=== PATIENT | female | born 1985 | race Caucasian/White ===

== ENCOUNTER 2025-06-28 03:59 | Inpatient (IN) | payer SELFPAY ==
[~2025-06-28] VITALS: Ht 160 cm; Wt 68.9 kg
[2025-06-28 04:01] VITALS: O2SAT 98
[2025-06-28 04:37] LABS: BASOPHILS % 0.3 % (0.0-2.0); EOSINOPHILS % 0.1 % (0.0-5.0); HEMATOCRIT. 38.8 % (36.0-48.0); HEMOGLOBIN. 12.8 g/dL (12.0-16.0); LYMPHOCYTES % 17.8 % (20.0-50.0); MEAN PLATELET VOLUME 10.4 fl (7.4-10.4); MONOCYTES % 5.2 % (2.0-8.0); NEUTROPHILS % 76.6 % (40.0-76.0); PLATELET 207 x1000/uL (130-400); RED BLOOD CELL COUNT 4.26 mill/uL (4.2-5.4); RED CELL DISTRIBUTION WIDTH 13.5 % (11.6-14.6)
[2025-06-28 04:55] LABS: CREATININE 0.8 mg/dL (0.6-1.0); TROPONIN I HIGH SENSITIVITY < 4 ng/L (3.0-34); UREA NITROGEN BLOOD 10 mg/dL (9-23)
[2025-06-28 05:11] LABS: HCG SCREEN NEGATIVE
[2025-06-28 08:00] VITALS: BP 125/76; PULSE 89; RESP 20; TEMP 36.9; O2SAT 98
[2025-06-28 09:02] VITALS: BP 125/76; PULSE 89; RESP 20; TEMP 36.9; O2SAT 98
[2025-06-28] MEDS ORDERED: DOCUSATE SODIUM 100MG CAPSULE PO PRN (09:15)
[2025-06-28] MEDS ORDERED: ONDANSETRON HCL 4MG/2ML INJ IV PRN (09:15)
[2025-06-28] MEDS ORDERED: ACETAMINOPHEN 325MG TABLET PO PRN ×2 (09:15)
[2025-06-28] MEDS ORDERED: CLONIDINE 0.1MG TABLET PO PRN (09:15)
[2025-06-28] MEDS ORDERED: IPRATROPIUM/ALBUTEROL 0.5-3(2.5)MG/3ML NEB HHN PRN (09:15)
[2025-06-28] MEDS ORDERED: NITROGLYCERIN 0.4MG TABLET SL SL PRN (09:15)
[2025-06-28 11:13] VITALS: BP 125/76; PULSE 89; RESP 20; TEMP 36.9184
[2025-06-28 11:42] VITALS: BP 101/69; PULSE 72; RESP 18; TEMP 37.1; O2SAT 100
[2025-06-28 13:07] LABS: TROPONIN I HIGH SENSITIVITY < 4 ng/L (3.0-34)
[2025-06-28] MEDS ORDERED: MORPHINE SULFATE 2 MG/ML INJ (NOT FOR IM USE) IV PRN (13:45)
[2025-06-28] MEDS ORDERED: NALOXONE HCL 0.4MG/ML VIAL IV PRN (14:00)
[2025-06-28 16:16] VITALS: BP 111/77; PULSE 78; RESP 19; TEMP 36.8; O2SAT 98
== END 2025-06-28 16:25 | disposition left against medical advice (07) | DRG 203 ==
LOC: ER 03:59 → 7WST 05:59 → EDBEDREQ 06:28 → EDBEDREQTM 06:28 → ENRESERV 06:38
PROVIDERS: ADMIT Internal Medicine; ATTEND Internal Medicine
DX: R07.89 Other chest pain (principal); I30.9 Acute pericarditis, unspecified
CPT/HCPCS: 36415; 71045; 80048; 84484; 84703; 85025; 85379; 85651; 86141; 93005; 99291; A4606